=== PATIENT | male | born 1995 | race Caucasian/White ===

== ENCOUNTER 2021-06-23 07:03 | Emergency (ER) | payer OTHER ==
[~2021-06-23] VITALS: Ht 180.3 cm; Wt 86.6 kg
[2021-06-23] MEDS ORDERED: ORPHENADRINE C100 MG PO (09:12)
[2021-06-23] MEDS ORDERED: DICLOFENAC POTA50 MG PO (09:12)
[2021-06-23] MEDS ORDERED: MUPIROCIN15 GM TOP (09:12)
== END 2021-06-23 09:40 ==
LOC: ER 07:03
DX: S60.812A Abrasion of left wrist, initial encounter (principal); V49.40XA Driver injured in collision with unspecified motor vehicles in traffic accident, initial encounter; Y92.89 Other specified places as the place of occurrence of the external cause